=== PATIENT | male | born 1950 | race Caucasian/White ===

== ENCOUNTER 2019-02-07 12:31 | Emergency (ER) | payer MEDICARE ==
[~2019-02-07] VITALS: Ht 182.9 cm; Wt 97.8 kg
[2019-02-07] MEDS ORDERED: PREG100C PO (12:48)
[2019-02-07] MEDS ORDERED: CELE100C PO (12:48)
[2019-02-07] MEDS ORDERED: OXYC-307 PO (12:48)
[2019-02-07] MEDS ORDERED: HYDROcodone/APAP 5/325 TABLET PO ONE (13:00)
[2019-02-07] MEDS ORDERED: ONDANSETRON ODT 4 MG PO ONE (13:00)
[2019-02-07] MEDS ORDERED: HYDROmorphone 1 MG/ML, 1ML IM ONE (13:00)
[2019-02-07] MEDS ORDERED: HYDROmorphone 1 MG/ML, 1ML ONE (13:05)
--- NOTE | 2019-02-07 14:15 | NUR ---
C COLLAR REMOVED AFTER CT CLEARS CSPINE. PT ASSISTED IN UNDRESSING FOR XR. PT STATES PAIN UNRELIEVED WITH DILAUDID. PT ABLE TO SIT UP IN BED BUT RATES PAIN AT 10/10. ERP NOTIFIED.
--- NOTE | 2019-02-07 15:10 | NUR ---
PT BACK FROM XRAY.
[2019-02-07] MEDS ORDERED: SODIUM CHLORIDE FLUSH 10ML SYR IVF ONE (16:00)
[2019-02-07] MEDS ORDERED: SODIUM CHLORIDE 0.9% 1,000ML IVBOLUS ONE (16:00)
[2019-02-07] MEDS ORDERED: HYDROmorphone 2 MG/ML, 1ML ONE (16:10)
--- NOTE | 2019-02-07 16:15 | NUR ---
IV PLACED, PT MEDICATED WITH DILAUDID FOR 10/10 BACK AND L SHOULDER PAIN. PT UPDATED ON POC BY ERP. PLAN TO TRANSFER PT TO [facility]. PT MOVED TO ROOM 41.
[2019-02-07] MEDS ORDERED: ONDANSETRON 2MG/ML, 2ML IVPush ONE (16:30)
[2019-02-07] MEDS ORDERED: HYDROmorphone 1 MG/ML, 1ML IV ONE (16:30)
[2019-02-07 16:31] VITALS: BP 107/60
--- NOTE | 2019-02-07 16:53 | NUR ---
THROUGHPUT RN: PT MEETS TRAUMA CRITERIA. PT TO BE TRANSFERRED TO [facility].
--- NOTE | 2019-02-07 16:59 | NUR ---
REPORT GIVEN TO DAGO CARRANZA RN AT [facility].
== END 2019-02-07 17:11 | disposition short-term general hospital (02) ==
LOC: ED 16:25
DX: S22.42XA Multiple fractures of ribs, left side, initial encounter for closed fracture (principal); S42.012A Anterior displaced fracture of sternal end of left clavicle, initial encounter for closed fracture; Z79.899 Other long term (current) drug therapy; W11.XXXA Fall on and from ladder, initial encounter; Y93.89 Activity, other specified; Y92.89 Other specified places as the place of occurrence of the external cause; Y99.8 Other external cause status
CPT/HCPCS: 70450; 71045; 72072; 72110; 72125; 73030; 73080; 96372; 96374; 99285; J1170